=== PATIENT | male | born 1960 | race Caucasian/White ===

== ENCOUNTER 2021-10-31 08:15 | Emergency (ER) | payer SELFPAY ==
[2021-10-31 08:24] VITALS: BP 153/99; PULSE 84; TEMP 97.6; BMI 25.8
[2021-10-31 09:49] LABS: EPI CELLS 4 /uL (0-25.1); HYALINE CASTS 0 /uL (0-3.1); PH,URINE 5.5 (5.0-8.0); URINE APPEARANCE CLEAR; URINE BACTERIA 7 /uL (0-1359); URINE BILIRUBIN NEGATIVE (NEGATIVE); URINE COLOR YELLOW; URINE GLUCOSE (UA) 1+ (NEGATIVE); URINE KETONE 1+ (NEGATIVE); URINE LEUK ESTERASE NEGATIVE (NEGATIVE); URINE NITRITE NEGATIVE (NEGATIVE); URINE PROTEIN 1+ (NEGATIVE); URINE RBC 10 /uL (0-23.9); URINE WBC 5 /uL (0-25.8)
[2021-10-31 10:19] LABS: ACTIVATED PTT 30.3 SECONDS (25.2-36.5); INR 1.03 (0.83-1.09); PROTHROMBIN TIME (PATIENT) 11.9 SEC (9.7-13.0)
[2021-10-31 10:26] LABS: CALCIUM 9.6 mg/dL (8.5-10.1)
[2021-10-31 10:27] LABS: BLOOD UREA NITROGEN 15.3 mg/dL (7-18)
[2021-10-31 10:31] LABS: BILIRUBIN,TOTAL 0.3 mg/dL (0.2-1); TOT PROT 7.1 g/dl (6.4-8.2)
[2021-10-31 10:32] LABS: BASO % 0.2 % (0-2.0); EOS % 1.8 % (0-4.5); HEMATOCRIT 31.6 % (35.4-49); HEMOGLOBIN 10.6 GM/dL (11.7-16.9); LYMPH % 27.2 % (8-40); MCH 29.2 pg (25.7-33.7); MCHC 33.5 g/dl (32.0-35.9); MEAN CELL VOLUME 87.2 fl (80-96); MEAN PLT VOLUME 9.6 fl (7.5-11.1); NEUT % 63.8 % (42.8-82.8); PLATELET COUNT 248 10^3/uL (134-434); RBC 3.62 M/mm3 (4.00-5.60); RDW 13.2 % (11.9-15.9); WHITE BLOOD COUNT 5.5 K/mm3 (4.0-10.0)
[2021-10-31] MEDS ORDERED: SODIUM CHLORIDE 0.9% 500 ML INFUS.BAG IV ONE (10:49)
[2021-10-31 12:22] LABS: CHLORIDE 114 mmol/L (98-107); SODIUM 144 mmol/L (136-145)
[2021-10-31 12:24] LABS: ANION GAP 4 MMOL/L (8-16); BLOOD UREA NITROGEN 12.7 mg/dL (7-18); CO2 25 mmol/L (21-32)
[2021-10-31 12:25] LABS: GLUCOSE,RANDOM 231 mg/dL (74-106)
[2021-10-31 12:27] LABS: CREATININE 0.7 mg/dL (0.55-1.3)
[2021-10-31 12:34] LABS: CALCIUM 6.9 mg/dL (8.5-10.1)
== END 2021-10-31 14:05 | disposition home or self-care (01) ==
LOC: JER 08:15
DX: R73.9 Hyperglycemia, unspecified (principal); R35.0 Frequency of micturition; E86.0 Dehydration
CPT/HCPCS: 36415; 80048; 80053; 81003; 82272; 82310; 82962; 85025; 85610; 85730; 87086; 99283-25